=== PATIENT | male | born 1955 | race Caucasian/White ===

== ENCOUNTER 2017-08-10 12:06 | Emergency (ER) | payer SELFPAY ==
[~2017-08-10] VITALS: Ht 162.6 cm; Wt 68.0 kg
[2017-08-10 12:12] VITALS: BP_SYST 150
[2017-08-10] MEDS ORDERED: traMADol HCL HCL 50 MG TABLET (ULTRAM) PO ONE (12:45)
[2017-08-10] MEDS ORDERED: KETOROLAC TROMETHAMINE 30 MG VIAL IM ONE (12:45)
[2017-08-10 13:41] VITALS: BP_SYST 144
== END 2017-08-10 12:51 ==
LOC: SED 12:06
DX: S22.42XA Multiple fractures of ribs, left side, initial encounter for closed fracture (principal); V19.3XXA Pedal cyclist (driver) (passenger) injured in unspecified nontraffic accident, initial encounter; Y93.I9 Activity, other involving external motion; Y92.481 Parking lot as the place of occurrence of the external cause; Y99.8 Other external cause status
CPT/HCPCS: 71110; 96372; 99284; J1885